=== PATIENT | female | born 1950 | race Caucasian/White ===

== ENCOUNTER 2018-06-11 11:26 | Inpatient (IN) | payer MEDICARE, OTHER ==
[2018-06-11] MEDS: morphine 4 MG/ML VIAL IV (12:56)
[2018-06-11] MEDS: SOD CHLORIDE 0.9% 500 ML IV (12:56)
[2018-06-11 13:03] LABS: ADD MAN DIFF? NO
[2018-06-11 13:07] LABS: BASOPHILS % 0.4 % (0.0-2.0); EOSINOPHILS % 0.4 % (0.0-7.0); HEMATOCRIT 46.3 % (37.0-47.0); HEMOGLOBIN 15.9 g/dl (12.0-16.0); LYMPHOCYTES # 1.8 10^3/ul (0.8-2.9); LYMPHOCYTES % 16.2 % (15.0-51.0); MEAN CORPUSCULAR HEMOGLOBIN 33.8 pg (29.0-33.0); MEAN CORPUSCULAR HGB CONC 34.3 g/dl (32.0-37.0); MEAN CORPUSCULAR VOLUME 98.3 fl (82.0-101.0); MEAN PLATELET VOLUME 9.4 fl (7.4-10.4); MONOCYTES % 8.6 % (0.0-11.0); NEUTROPHIL # 8.4 10^3/ul (1.6-7.5); NEUTROPHILS % 73.9 % (39.0-77.0); PLATELET COUNT 284 10^3/UL (140-415); RED BLOOD COUNT 4.71 10^6/ul (4.20-5.40); RED CELL DISTRIBUTION WIDTH 12.6 % (11.5-14.5)
[2018-06-11 13:07] LABS: WHITE BLOOD COUNT 11.4 10^3/ul (4.8-10.8)
[2018-06-11 13:23] LABS: PARTIAL THROMBOPLASTIN TIME 27.2 Sec (25.0-35.0); PROTIME 13.3 Sec (11.9-14.9)
[2018-06-11 13:24] LABS: ALANINE AMINOTRANSFERASE 76 IU/L (13-69); ALBUMIN 4.1 g/dl (3.3-4.9); ALBUMIN/GLOBULIN RATIO 1.24; ALKALINE PHOSPHATASE 109 IU/L (42-121); ANION GAP 12 (8-16); ASPARTATE AMINO TRANSFERASE 70 IU/L (15-46); BILIRUBIN,INDIRECT 1.3 mg/dl (0-1.1); BILIRUBIN,TOTAL 1.3 mg/dl (0.2-1.3); BLOOD UREA NITROGEN 10 mg/dl (7-20); CALCIUM 9.8 mg/dl (8.4-10.2); CARBON DIOXIDE 30 mmol/L (21-31); CHLORIDE 100 mmol/L (97-110); CREATININE 0.66 mg/dl (0.44-1.00); GLUCOSE 123 mg/dl (70-220); POTASSIUM 4.3 mmol/L (3.5-5.1); SODIUM 138 mmol/L (135-144); TOTAL PROTEIN 7.4 g/dl (6.1-8.1)
[2018-06-11] MEDS: SOD CHLORIDE 0.9% 100 ML (14:13)
[2018-06-11] MEDS: IOHEXOL 300MG/ML 150 ML BTL (14:14)
[2018-06-11] MEDS ORDERED: ACETAMINOPHEN 325 MG TAB PO ×2 (14:30→15:30)
[2018-06-11] MEDS ORDERED: ONDANSETRON 4 MG INJ IV (14:30)
[2018-06-11] MEDS ORDERED: NACL 0.9% 3 ML SYG IV (15:30)
[2018-06-11] MEDS: PANTOPRAZOLE IV 80 MG in SOD CHLORIDE 0.9% 100 ML IV (15:52)
[2018-06-11] MEDS: PANTOPRAZOLE IV 80 MG in SOD CHLORIDE 0.9% 100 ML IVPB (15:52)
[2018-06-11] MEDS: SOD CHLORIDE 0.9% 1,000 ML IV ×2 (17:20→23:09)
[2018-06-11] MEDS: CIPROFLOXACIN 400MG/D5W 200 ML IVPB (17:20)
[2018-06-11] MEDS: BISACODYL (EC) 5 MG TAB PO (17:31)
[2018-06-11] MEDS: MAGNESIUM CITRATE 300 ML BTL PO (19:58)
[2018-06-11] MEDS: HYDROCODONE/APAP (5/325) TAB PO (19:58)
[2018-06-11] MEDS: POLYETHYLENE GLYCOL 3350 119 GM POWDER PO (20:37)
[2018-06-11] MEDS: metroNIDAZOLE 500 MG/NS (PMX) 100 ML IVPB (22:16)
[2018-06-12] MEDS: CIPROFLOXACIN 400MG/D5W 200 ML IVPB ×3 (01:44→20:53)
[2018-06-12] MEDS: PANTOPRAZOLE IV 80 MG in SOD CHLORIDE 0.9% 100 ML IV ×2 (03:10→12:33)
[2018-06-12] MEDS: POLYETHYLENE GLYCOL 3350 119 GM POWDER PO (05:26)
[2018-06-12] MEDS: LEVOTHYROXINE 25 MCG TAB PO (05:26)
[2018-06-12] MEDS: metroNIDAZOLE 500 MG/NS (PMX) 100 ML IVPB ×3 (05:26→22:32)
[2018-06-12 06:48] LABS: ADD MAN DIFF? NO
[2018-06-12 06:52] LABS: BASOPHILS % 0.5 % (0.0-2.0); EOSINOPHILS # 0.2 10^3/ul (0.0-0.5); EOSINOPHILS % 2.3 % (0.0-7.0); HEMATOCRIT 41.5 % (37.0-47.0); LYMPHOCYTES % 27.5 % (15.0-51.0); MEAN CORPUSCULAR HEMOGLOBIN 33.8 pg (29.0-33.0); MEAN CORPUSCULAR HGB CONC 33.7 g/dl (32.0-37.0); MEAN CORPUSCULAR VOLUME 100.2 fl (82.0-101.0); MEAN PLATELET VOLUME 9.8 fl (7.4-10.4); MONOCYTE # 0.8 10^3/ul (0.3-0.9); MONOCYTES % 10.9 % (0.0-11.0); NEUTROPHIL # 4.3 10^3/ul (1.6-7.5); NEUTROPHILS % 58.3 % (39.0-77.0); PLATELET COUNT 241 10^3/UL (140-415); RED BLOOD COUNT 4.14 10^6/ul (4.20-5.40); RED CELL DISTRIBUTION WIDTH 12.8 % (11.5-14.5)
[2018-06-12 06:52] LABS: WHITE BLOOD COUNT 7.4 10^3/ul (4.8-10.8)
[2018-06-12] MEDS ORDERED: LIDOCAINE 2% (SDV) 5 ML INJ (07:00)
[2018-06-12] MEDS: SOD CHLORIDE 0.9% 1,000 ML IV ×3 (07:09→15:09)
[2018-06-12 07:31] LABS: ALANINE AMINOTRANSFERASE 61 IU/L (13-69); ALBUMIN 3.1 g/dl (3.3-4.9); ALBUMIN/GLOBULIN RATIO 1.19; ALKALINE PHOSPHATASE 74 IU/L (42-121); ANION GAP 10 (8-16); ASPARTATE AMINO TRANSFERASE 55 IU/L (15-46); BILIRUBIN,INDIRECT 1.2 mg/dl (0-1.1); BILIRUBIN,TOTAL 1.2 mg/dl (0.2-1.3); BLOOD UREA NITROGEN 8 mg/dl (7-20); CALCIUM 8.5 mg/dl (8.4-10.2); CARBON DIOXIDE 30 mmol/L (21-31); CHLORIDE 103 mmol/L (97-110); CREATININE 0.71 mg/dl (0.44-1.00); GLUCOSE 94 mg/dl (70-220); MAGNESIUM 1.9 mg/dl (1.7-2.5); POTASSIUM 3.8 mmol/L (3.5-5.1); SODIUM 139 mmol/L (135-144); TOTAL PROTEIN 5.7 g/dl (6.1-8.1)
[2018-06-12] MEDS: TRIAMTERENE/HCTZ (37.5-25) CAP PO (08:22)
[2018-06-12] MEDS: AMLODIPINE 2.5 MG TAB PO (08:24)
[2018-06-12] MEDS: BISACODYL (EC) 5 MG TAB PO (08:38)
[2018-06-12] MEDS: morphine 2 MG INJ IV ×2 (09:54→14:15)
[2018-06-12] MEDS ORDERED: PROPOFOL 60 ML (17:15)
[2018-06-12] MEDS: PANTOPRAZOLE 40 MG INJ IV (18:18)
[2018-06-13] MEDS: SOD CHLORIDE 0.9% 1,000 ML IV ×3 (01:49→11:12)
[2018-06-13] MEDS: morphine 2 MG INJ IV ×3 (02:12→20:33)
[2018-06-13] MEDS: ONDANSETRON 4 MG INJ IV (02:12)
[2018-06-13 05:40] LABS: ADD MAN DIFF? NO
[2018-06-13 05:55] LABS: WHITE BLOOD COUNT 6.9 10^3/ul (4.8-10.8)
[2018-06-13 05:55] LABS: BASOPHILS % 0.4 % (0.0-2.0); EOSINOPHILS # 0.2 10^3/ul (0.0-0.5); EOSINOPHILS % 2.3 % (0.0-7.0); HEMATOCRIT 41.6 % (37.0-47.0); HEMOGLOBIN 14.1 g/dl (12.0-16.0); LYMPHOCYTES # 1.9 10^3/ul (0.8-2.9); LYMPHOCYTES % 27.9 % (15.0-51.0); MEAN CORPUSCULAR HEMOGLOBIN 34.1 pg (29.0-33.0); MEAN CORPUSCULAR HGB CONC 33.9 g/dl (32.0-37.0); MEAN CORPUSCULAR VOLUME 100.5 fl (82.0-101.0); MEAN PLATELET VOLUME 10.6 fl (7.4-10.4); MONOCYTE # 0.6 10^3/ul (0.3-0.9); MONOCYTES % 9.2 % (0.0-11.0); NEUTROPHIL # 4.1 10^3/ul (1.6-7.5); NEUTROPHILS % 59.3 % (39.0-77.0); PLATELET COUNT 214 10^3/UL (140-415); RED BLOOD COUNT 4.14 10^6/ul (4.20-5.40); RED CELL DISTRIBUTION WIDTH 12.4 % (11.5-14.5)
[2018-06-13 05:56] LABS: POSITIVE DIFF @See below
[2018-06-13] MEDS: LEVOTHYROXINE 25 MCG TAB PO (06:06)
[2018-06-13] MEDS: metroNIDAZOLE 500 MG/NS (PMX) 100 ML IVPB ×3 (06:06→22:01)
[2018-06-13] MEDS: PANTOPRAZOLE 40 MG INJ IV ×2 (06:06→17:06)
[2018-06-13 06:18] LABS: ANION GAP 11 (8-16); BLOOD UREA NITROGEN 7 mg/dl (7-20); CALCIUM 8.5 mg/dl (8.4-10.2); CARBON DIOXIDE 23 mmol/L (21-31); CHLORIDE 108 mmol/L (97-110); CREATININE 0.67 mg/dl (0.44-1.00); GLUCOSE 93 mg/dl (70-220); MAGNESIUM 1.8 mg/dl (1.7-2.5); PHOSPHORUS 4.1 mg/dl (2.5-4.9); POTASSIUM 4.2 mmol/L (3.5-5.1); SODIUM 138 mmol/L (135-144)
[2018-06-13] MEDS: AMLODIPINE 2.5 MG TAB PO (08:31)
[2018-06-13] MEDS: TRIAMTERENE/HCTZ (37.5-25) CAP PO (08:31)
[2018-06-13] MEDS: CIPROFLOXACIN 400MG/D5W 200 ML IVPB ×2 (08:32→20:26)
[2018-06-13] MEDS: SUCRALFATE (100 MG/ML) 10ML CUP PO ×2 (17:06→20:25)
[2018-06-14] MEDS: metroNIDAZOLE 500 MG/NS (PMX) 100 ML IVPB ×3 (06:28→21:42)
[2018-06-14] MEDS: PANTOPRAZOLE 40 MG INJ IV ×2 (06:28→17:02)
[2018-06-14] MEDS: LEVOTHYROXINE 25 MCG TAB PO (06:28)
[2018-06-14 06:39] LABS: ADD MAN DIFF? NO
[2018-06-14 06:43] LABS: BASOPHILS % 0.3 % (0.0-2.0); EOSINOPHILS # 0.3 10^3/ul (0.0-0.5); EOSINOPHILS % 3.7 % (0.0-7.0); HEMATOCRIT 42.4 % (37.0-47.0); HEMOGLOBIN 14.2 g/dl (12.0-16.0); LYMPHOCYTES # 1.8 10^3/ul (0.8-2.9); LYMPHOCYTES % 23.8 % (15.0-51.0); MEAN CORPUSCULAR HEMOGLOBIN 33.4 pg (29.0-33.0); MEAN CORPUSCULAR HGB CONC 33.5 g/dl (32.0-37.0); MEAN CORPUSCULAR VOLUME 99.8 fl (82.0-101.0); MEAN PLATELET VOLUME 9.9 fl (7.4-10.4); MONOCYTE # 0.7 10^3/ul (0.3-0.9); MONOCYTES % 9.9 % (0.0-11.0); NEUTROPHIL # 4.6 10^3/ul (1.6-7.5); NEUTROPHILS % 61.9 % (39.0-77.0); PLATELET COUNT 209 10^3/UL (140-415); RED BLOOD COUNT 4.25 10^6/ul (4.20-5.40); RED CELL DISTRIBUTION WIDTH 12.2 % (11.5-14.5)
[2018-06-14 06:43] LABS: WHITE BLOOD COUNT 7.5 10^3/ul (4.8-10.8)
[2018-06-14 07:06] LABS: ANION GAP 13 (8-16); BLOOD UREA NITROGEN 9 mg/dl (7-20); CALCIUM 9.1 mg/dl (8.4-10.2); CARBON DIOXIDE 26 mmol/L (21-31); CHLORIDE 104 mmol/L (97-110); CREATININE 0.71 mg/dl (0.44-1.00); GLUCOSE 114 mg/dl (70-220); MAGNESIUM 1.7 mg/dl (1.7-2.5); PHOSPHORUS 4.4 mg/dl (2.5-4.9); SODIUM 139 mmol/L (135-144)
[2018-06-14] MEDS: SUCRALFATE (100 MG/ML) 10ML CUP PO ×4 (08:19→20:29)
[2018-06-14] MEDS: AMLODIPINE 2.5 MG TAB PO (08:20)
[2018-06-14] MEDS: TRIAMTERENE/HCTZ (37.5-25) CAP PO (08:20)
[2018-06-14] MEDS: CIPROFLOXACIN 400MG/D5W 200 ML IVPB ×2 (08:20→20:29)
[2018-06-14] MEDS: HYDROCODONE/APAP (5/325) TAB PO (10:42)
[2018-06-14] MEDS: morphine 2 MG INJ IV ×2 (11:49→19:36)
[2018-06-14] MEDS ORDERED: HYOSCYAMINE 0.125 MG SUBL TAB SL (12:00)
[2018-06-14] MEDS: SACCHAROMYCES BOULARDII 250 MG CAP PO (20:29)
[2018-06-15] MEDS: metroNIDAZOLE 500 MG/NS (PMX) 100 ML IVPB (05:43)
[2018-06-15] MEDS: PANTOPRAZOLE 40 MG INJ IV (05:44)
[2018-06-15] MEDS: LEVOTHYROXINE 25 MCG TAB PO (05:44)
[2018-06-15] MEDS: TRIAMTERENE/HCTZ (37.5-25) CAP PO (09:00)
[2018-06-15] MEDS: SUCRALFATE (100 MG/ML) 10ML CUP PO ×2 (09:28→12:55)
[2018-06-15] MEDS: SACCHAROMYCES BOULARDII 250 MG CAP PO (09:28)
[2018-06-15] MEDS: AMLODIPINE 2.5 MG TAB PO (09:28)
[2018-06-15] MEDS: CIPROFLOXACIN 400MG/D5W 200 ML IVPB (09:28)
[2018-06-15] MEDS: HYDROCODONE/APAP (5/325) TAB PO (09:29)
[2018-06-15] MEDS ORDERED: CIPROFLOXACIN 250 MG TAB PO (10:30)
[2018-06-15] MEDS: CIPROFLOXACIN 250 MG TAB PO (12:56)
[2018-06-15] MEDS: metroNIDAZOLE 500 MG TAB PO (12:56)
[2018-06-15] MEDS ORDERED: CIPROFLOXACIN 500 MG TAB PO (18:00)
== END 2018-06-15 13:30 | disposition home or self-care (01) | DRG 392 ==
LOC: E/R 11:26 → 2NE 14:25
PROC: 0DB98ZX Excision of Duodenum, Via Natural or Artificial Opening Endoscopic, Diagnostic (ICD-10-PCS; principal; 2018-06-12 16:00)
PROC: 0DB68ZX Excision of Stomach, Via Natural or Artificial Opening Endoscopic, Diagnostic (ICD-10-PCS; 2018-06-12 16:00)
PROC: 0DBE8ZX Excision of Large Intestine, Via Natural or Artificial Opening Endoscopic, Diagnostic (ICD-10-PCS; 2018-06-12 16:00)
DX: K52.9 Noninfective gastroenteritis and colitis, unspecified (principal); K55.1 Chronic vascular disorders of intestine; K62.5 Hemorrhage of anus and rectum; K64.9 Unspecified hemorrhoids; K29.70 Gastritis, unspecified, without bleeding; E86.0 Dehydration; R51 Headache; I10 Essential (primary) hypertension; E03.9 Hypothyroidism, unspecified; K44.9 Diaphragmatic hernia without obstruction or gangrene; K21.9 Gastro-esophageal reflux disease without esophagitis; R12 Heartburn; K57.30 Diverticulosis of large intestine without perforation or abscess without bleeding
CPT/HCPCS: 36415; 74177; 80048; 80053; 83735; 84100; 85025; 85610; 85730; 86674; 86850; 86900; 86901; 87045; 87075; 87205; 88305; 96374; 99285-25

== ENCOUNTER 2018-06-21 09:24 | Emergency (ER) | payer MEDICARE, OTHER ==
[2018-06-21 09:49] LABS: ADD MAN DIFF? NO
[2018-06-21] MEDS: HYDROmorphONE 1 MG/ML SYG IV ×2 (09:49→10:17)
[2018-06-21] MEDS: ONDANSETRON 4 MG INJ IV (09:50)
[2018-06-21 09:53] LABS: WHITE BLOOD COUNT 14.1 10^3/ul (4.8-10.8)
[2018-06-21 09:53] LABS: BASOPHIL # 0.1 10^3/ul (0.0-0.1); BASOPHILS % 0.4 % (0.0-2.0); EOSINOPHILS % 0.1 % (0.0-7.0); HEMATOCRIT 46.4 % (37.0-47.0); HEMOGLOBIN 16.5 g/dl (12.0-16.0); LYMPHOCYTES # 1.6 10^3/ul (0.8-2.9); LYMPHOCYTES % 11.4 % (15.0-51.0); MEAN CORPUSCULAR HEMOGLOBIN 34.2 pg (29.0-33.0); MEAN CORPUSCULAR HGB CONC 35.6 g/dl (32.0-37.0); MEAN CORPUSCULAR VOLUME 96.1 fl (82.0-101.0); MEAN PLATELET VOLUME 9.2 fl (7.4-10.4); MONOCYTE # 0.6 10^3/ul (0.3-0.9); MONOCYTES % 4.5 % (0.0-11.0); NEUTROPHIL # 11.7 10^3/ul (1.6-7.5); PLATELET COUNT 301 10^3/UL (140-415); RED BLOOD COUNT 4.83 10^6/ul (4.20-5.40); RED CELL DISTRIBUTION WIDTH 12.3 % (11.5-14.5)
[2018-06-21] MEDS ORDERED: PROPOFOL 200 MG INJ IV (09:57)
[2018-06-21 10:06] LABS: ALANINE AMINOTRANSFERASE 57 IU/L (13-69); ALBUMIN 4.4 g/dl (3.3-4.9); ALBUMIN/GLOBULIN RATIO 1.18; ALKALINE PHOSPHATASE 91 IU/L (42-121); ANION GAP 18 (8-16); ASPARTATE AMINO TRANSFERASE 60 IU/L (15-46); BILIRUBIN,INDIRECT 0.3 mg/dl (0-1.1); BILIRUBIN,TOTAL 0.3 mg/dl (0.2-1.3); BLOOD UREA NITROGEN 10 mg/dl (7-20); CALCIUM 9.4 mg/dl (8.4-10.2); CARBON DIOXIDE 24 mmol/L (21-31); CHLORIDE 101 mmol/L (97-110); CREATINE KINASE 135 IU/L (23-200); CREATININE 0.62 mg/dl (0.44-1.00); GLUCOSE 137 mg/dl (70-220); POTASSIUM 3.8 mmol/L (3.5-5.1); SODIUM 139 mmol/L (135-144); TOTAL PROTEIN 8.1 g/dl (6.1-8.1)
[2018-06-21 10:14] LABS: INR 0.99; PROTIME 13.2 Sec (11.9-14.9)
[2018-06-21 10:15] LABS: PARTIAL THROMBOPLASTIN TIME 26.9 Sec (25.0-35.0)
[2018-06-21 10:18] LABS: B-TYPE NATRIURETIC PEPTIDE 14 PG/ML (0-125); CK-MB 2.69 ng/ml (0.0-2.4); TROPONIN-I < 0.012 ng/ml (0.000-0.120)
== END 2018-06-21 12:50 | disposition home or self-care (01) ==
LOC: E/R 09:24
DX: S43.015A Anterior dislocation of left humerus, initial encounter (principal); I10 Essential (primary) hypertension; E03.9 Hypothyroidism, unspecified; F17.210 Nicotine dependence, cigarettes, uncomplicated; W22.8XXA Striking against or struck by other objects, initial encounter; Y92.89 Other specified places as the place of occurrence of the external cause
CPT/HCPCS: 23650; 73030; 80053; 82550; 82553; 83880; 84484; 85025; 85610; 85730; 93005; 94770; 96374; 96375; 96376; 99291-25